=== PATIENT | female | born 1950 | race Caucasian/White ===

== ENCOUNTER 2017-05-06 09:27 | Day surgery (SDC) | payer OTHER ==
[~2017-05-06] VITALS: Ht 165.1 cm; Wt 86.2 kg
[~2017-05-06 09:27] MED LIST: AMBIEN5 MG PO; CRESTOR5 MG PO; FLONASE16 G1 BOTH NARES; HYDROCHLOROTHIA25 MG PO; INDERIDE 40/1 TABLET PO; LEVOXYL50 MCG PO; LO-DOSE ASPIRIN81 M1 PO; LOTREL 5/101 CAPSULE PO; NORVASC10 MG PO; PRILOSEC OTC20 MG PO; PRILOSEC20 MG PO; SINGULAIR10 MG PO; TENORMIN25 MG PO; VALIUM2 MG PO; VENTOLIN HFA18 GM IH; VITAMIN D2000 UNIT PO; ZYRTEC5 MG PO
[2017-05-06 10:01] VITALS: BP 174/80
[2017-05-06 14:53] VITALS: BP 158/79
[2017-05-06 15:20] VITALS: BP 165/79
== END 2017-05-06 15:38 | disposition home or self-care (01) ==
LOC: SDC 09:27
PROC: 0SBC4ZZ Excision of Right Knee Joint, Percutaneous Endoscopic Approach (ICD-10-PCS; principal; 2017-05-06)
DX: S83.271A Complex tear of lateral meniscus, current injury, right knee, initial encounter (principal); S83.241A Other tear of medial meniscus, current injury, right knee, initial encounter; W18.30XA Fall on same level, unspecified, initial encounter; Y93.02 Activity, running; I10 Essential (primary) hypertension; J45.909 Unspecified asthma, uncomplicated; E03.9 Hypothyroidism, unspecified; K21.9 Gastro-esophageal reflux disease without esophagitis; Z79.82 Long term (current) use of aspirin
CPT/HCPCS: J1100; J1170; J2250; J2405; J2795; J3010

== ENCOUNTER 2017-07-05 14:36 | Observation (INO) | payer OTHER ==
[~2017-07-05] VITALS: Ht 165.1 cm; Wt 87.6 kg
[2017-07-05 14:56] LABS: BASOPHIL (%) 0.8 % (0-1); BASOPHIL COUNT 0.1 K/uL (0-0.1); EOSINOPHIL (%) 1.9 % (0-5); EOSINOPHIL COUNT 0.1 K/uL (0-0.3); HEMATOCRIT 41.6 % (36.0-46.0); HEMOGLOBIN 13.4 G/DL (11.9-15.5); IMMATURE GRANULOCYTE (%) 0.3 % (0.0-0.7); LYMPHOCYTE (%) 28.5 % (15-42); LYMPHOCYTE COUNT 1.8 K/uL (1.0-2.8); MCH 26.4 PG (29.0-34.0); MCHC 32.2 G/DL (30.0-36.0); MCV 81.9 FL (83-99); MONOCYTE (%) 10.5 % (3-12); MONOCYTE COUNT 0.7 K/uL (0-0.8); NEUTROPHIL COUNT 3.7 K/uL (1.8-6.4); PLATELET COUNT 320 K/uL (156-360); RBC DIS.WIDTH-CV 13.2 % (11.8-14.6); RBC DIS.WIDTH-SD 39.6 % (39-53); RED BLOOD COUNT 5.08 M/uL (3.80-5.20); WHITE BLOOD COUNT 6.4 K/uL (4.1-10.2)
[2017-07-05 15:06] LABS: AMYLASE 32 IU/L (1-118); CHLORIDE 101 mEq/L (99-109); POTASSIUM 3.4 mEq/L (3.7-5.4); SODIUM 142 mEq/L (136-147)
[2017-07-05 15:07] LABS: GLUCOSE 91 mg/dL (70-99)
[2017-07-05 15:09] LABS: INTER. NORMALIZED RATIO 1.1
[2017-07-05 15:11] LABS: CREATININE 0.7 mg/dL (0.6-1.3); GFR ESTIMATE (CALCULATED) > 59 mL/min/; SERUM ETHYL ALCOHOL < 10 mg/dL
[2017-07-05 15:12] LABS: PTT 32.5 SEC (25-37); UREA NITROGEN (BUN) 14 mg/dL (9-23)
[2017-07-05 15:14] LABS: LIPASE 17 U/L (1.0-51.0)
[2017-07-05 15:18] LABS: TROP-I INTERPRETATION NEGATIVE; TROPONIN-I < 0.01 ng/mL (0.0-0.30)
[2017-07-05 16:04] LABS: APPEARANCE CLEAR ((CLEAR)); BILIRUBIN NEGATIVE; BLOOD NEGATIVE; COLOR COLORLESS ((YELLOW)); GLUCOSE (STRIP) NEGATIVE; KETONES NEGATIVE; LEUKOCYTES NEGATIVE; NITRITE NEGATIVE; PROTEIN (STRIP) NEGATIVE; SPECIFIC GRAVITY 1.004 (1.000-1.030); UCUL ADDED? NO; UROBILINOGEN 0.2 MG/DL (0.2-1.0)
[2017-07-05 16:22] LABS: COCAINE NEGATIVE (150 ng/mL); METHAMPHETAMINE NEGATIVE (500 ng/mL); OPIATES (MORPHINE) NEGATIVE (100 ng/mL); PHENCYCLIDINE NEGATIVE (25 ng/mL); THC CANNABINOIDS NEGATIVE (50 ng/mL)
[2017-07-05 16:23] LABS: AMPHETAMINE NEGATIVE (500 ng/mL); BARBITURATES NEGATIVE (200 ng/mL); BENZODIAZEPINES PRESUMPTIVE POSITIVE (150 ng/mL); BUPRENORPHINE NEGATIVE (10 ng/mL); METHADONE NEGATIVE (200 ng/mL); OXYCODONE NEGATIVE (100 ng/mL); PROPOXYPHENE NEGATIVE (300 ng/mL); TRICYCLIC ANTIDEPRESSANTS NEGATIVE (300 ng/mL)
[2017-07-05 16:52] LABS: BENZODIAZEPINES, URINE SCREEN Negative (200 ng/mL)
[2017-07-05] MEDS ORDERED: FLUTICASONE PRO16 GM BOTH NARES (18:09)
[2017-07-05] MEDS ORDERED: DIAZEPAM2 MG PO (18:11)
[2017-07-05] MEDS ORDERED: ZOLPIDEM TARTRAT5 MG PO (18:11)
[2017-07-05] MEDS ORDERED: MONTELUKAST SOD10 MG PO (18:12)
[2017-07-05] MEDS ORDERED: LISINOPRIL20 MG PO (18:13)
[2017-07-05] MEDS ORDERED: OMEPRAZOLE20 MG PO (18:14)
[2017-07-05] MEDS ORDERED: ATENOLOL25 MG PO (18:14)
[2017-07-05] MEDS ORDERED: PROAIR HFA8.5 GM IH (18:22)
[2017-07-05] MEDS ORDERED: FLUOCINOLONE AC20 ML BOTH EARS (18:24)
[2017-07-05] MEDS ORDERED: ZYRTEC10 M3 PO (18:24)
[2017-07-05 18:42] VITALS: BP 171/81
[2017-07-05 19:30] VITALS: BP 170/85
[2017-07-05 20:57] LABS: HDL CHOLESTEROL 52 MG/DL (Desirable>=50); LDL CHOLESTEROL 80 mg/dL (Desirable<100); NON-HDL CHOLESTEROL 98 mg/dL (Desirable<160); TOTAL CHOLESTEROL 150 mg/dL (Desirable<200); TRIGLYCERIDES 89 MG/DL (Normal: <150)
[2017-07-05 21:07] LABS: TROP-I INTERPRETATION NEGATIVE; TROPONIN-I < 0.01 ng/mL (0.0-0.30)
[2017-07-05 22:48] VITALS: BP 197/86
[2017-07-06 00:10] VITALS: BP 184/75
[2017-07-06 03:07] LABS: TROP-I INTERPRETATION NEGATIVE; TROPONIN-I < 0.01 ng/mL (0.0-0.30)
[2017-07-06 03:33] VITALS: BP 128/85
[2017-07-06 08:00] VITALS: BP 118/92
[2017-07-06 10:08] LABS: HEMOGLOBIN A1c (GLYCOHEMOGLOB) 5.4 % (Below 5.7)
[2017-07-06 11:10] VITALS: BP 201/86
[2017-07-06 12:00] VITALS: BP 150/75
[2017-07-06 12:09] VITALS: BP 150/70
== END 2017-07-06 15:17 | disposition home or self-care (01) ==
LOC: EME 14:36 → 5WEST 16:35 → EDOF 16:35 → ENRESERV 16:45 → 5WEST 18:11
PROVIDERS: Emergency Medicine; Internal Medicine
DX: I16.0 Hypertensive urgency (principal); I10 Essential (primary) hypertension; R51 Headache; R29.810 Facial weakness; Z82.3 Family history of stroke; I27.20 Pulmonary hypertension, unspecified; K21.9 Gastro-esophageal reflux disease without esophagitis; Z79.82 Long term (current) use of aspirin; Z83.3 Family history of diabetes mellitus; Z90.710 Acquired absence of both cervix and uterus
CPT/HCPCS: 70450; 80048; 80061; 81003; 82150; 83036; 83690; 84484; 84999; 85025; 85610; 85730; 86850; 86900; 86901; 93005; 93306; 93880; 99281; 99285; G0378; G0480; J0360; J1650